=== PATIENT | female | born 1980 ===

== ENCOUNTER 2023-04-19 01:58 | Emergency (ER) | payer OTHER ==
[2023-04-19 02:34] LABS: Specific Gravity 1.022 (1.005-1.030)
[2023-04-19 02:37] LABS: Specific Gravity 1.022 (1.005-1.030); Urine Bacteria None Seen /HPF (<20); Urine Bilirubin NEGATIVE (Negative); Urine Blood Negative (Negative); Urine Clarity Clear (Clear); Urine Color Colorless (Yellow); Urine Glucose 4+ (Over) (Negative); Urine Protein NEGATIVE (Negative); Urine RBC <5 /HPF (None Seen); Urine Urobilinogen Normal (Normal)
[2023-04-19] MEDS ORDERED: DIAZEPAM 5 MG TABLET ONE (03:01)
[2023-04-19] MEDS ORDERED: HYDROCODONE/APAP 5/325 MG TAB ONE (03:02)
--- NOTE | 2023-04-19 03:14 | EDPHYS ---
Physician Documentation [facility] Name: Jo Rangel Age: 42 yrs Sex: Female : 1980 Arrival Date: 04/19/2023 Time: 01:58 Bed 13 Private MD: ED Physician Brandan Alcaraz HPI: 04/19 02:44 This 42 yrs old Female presents to ER via Ambulatory with complaints of Low Back Pain. ms3 02:44 42-year-old female with past medical history of bipolar disorder, diabetes, ms3 schizophrenia, depression, hypertension presents emergency department for kidney pain that is been ongoing for 4 days. Patient rates her discomfort an 8/10. Patient denies fevers, chills, nausea, vomiting. Patient states pain became worse today. Patient has been drinking water and taking ibuprofen without relief. 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 - Social history:: Smoking status: Patient denies any tobacco usage or history of. ROS: 02:44 Constitutional: Negative for fever, and chills. Cardiovascular: Negative for chest ms3 pain, and palpitations. Respiratory: Negative for shortness of breath, cough, wheezing, and pleuritic chest pain, Abdomen/GI: Negative for abdominal pain, nausea, vomiting, diarrhea, and constipation, 02:44 Back: Positive for back pain, 02:44 All other systems are negative, Exam: 02:44 Constitutional: This is a well developed, well nourished patient who is awake, alert, ms3 and in no acute distress. Head/Face: Normocephalic, atraumatic. Neck: Trachea midline, no cervical lymphadenopathy. Supple, full range of motion without nuchal rigidity, or vertebral point tenderness. No Meningismus. Chest/axilla: Normal chest wall appearance and motion. Nontender with no deformity. Cardiovascular: Regular rate and rhythm with a normal S1 and S2. No gallops, murmurs, or rubs. Normal PMI, no JVD. No pulse deficits. Respiratory: Lungs have equal breath sounds bilaterally, clear to auscultation and percussion. No rales, rhonchi or wheezes noted. No increased work of breathing, no retractions or nasal flaring. Abdomen/GI: Soft, non-tender, with normal bowel sounds. No distension or tympany. No guarding or rebound. No evidence of tenderness throughout. 02:44 Skin: Warm, dry with normal turgor. Normal color with no rashes, no lesions, and no evidence of cellulitis. 02:44 Back: CVA tenderness, is absent, Vital Signs: 02:08 Temp 97.9; Weight 90.72 kg; Pain 8/10; ap3 02:15 BP 123 / 73; Pulse 75; Resp 16 S; Pulse Ox 98% on R/A; km8 02:51 BP 110 / 65; Pulse 74; Resp 13; Pulse Ox 96% ; nw1 02:08 Pain Scale: Adult ap3 MDM: 02:26 Patient medically screened. ms3 02:44 Differential diagnosis: strain, UTI, Muscle spasm. ms3 03:14 Data reviewed: vital signs, nurses notes, lab test result(s), and as a result, I will ms3 discharge patient. I considered the following discharge prescriptions or medication management in the emergency department Medications were administered in the Emergency Department. See MAR. Counseling: I had a detailed discussion with the patient and/or guardian regarding the historical points, exam findings, and any diagnostic results supporting the discharge/admit diagnosis, lab results, the need for outpatient follow up, to return to the emergency department if symptoms worsen or persist or if there are any questions or concerns that arise at home. Response to treatment: the patient's symptoms have mildly improved after treatment, and as a result, I will discharge patient. Special discussion: I discussed with the patient/guardian in detail that at this point there is no indication for admission to the hospital. It is understood, however, that if the symptoms persist or worsen the patient needs to return immediately for re-evaluation. ED course: Discussed negative urinalysis with patient. Patient to follow-up with primary care physician in 2 to 3 days. Patient stands agrees with plan. All questions were answered. Return precautions discussed include worsening symptoms, or any other concerns. 04/19 02:04 Order name: Urinalysis w/ reflexes; Complete Time: 02:43 ms3 10/22 02:30 Order name: Test, Urine; Complete Time: km8 Administered Medications: 02:50 Drug: HYDROcodone-acetaminophen PO 5 mg-325 mg 1 tabs PO once; Wait for negative UPT km8 Route: PO; 02:50 Drug: Diazepam PO 5 mg PO once; after negative UPT Route: PO; km8 Disposition Summary: 04/19/23 03:14 Discharge Ordered Notes: Location: Home ms3 Condition: Stable ms3 Diagnosis - Low back pain ms3 Followup: ms3 - With: Everette Baeza DO - When: 2 - 3 days - Reason: Recheck today's complaints Discharge Instructions: - Discharge Summary Sheet ms3 - Acute Back Pain, Adult ms3 Forms: - Medication Reconciliation Form ms3 - Thank You Letter ms3 - Antibiotic Education ms3 - Prescription Opioid Use ms3 - Patient Portal Instructions ms3 - Leadership Thank You Letter ms3 Prescriptions: - Ibuprofen 600 mg Oral Tablet - take 1 tablet ORAL route every 6 hours As needed take with food; 30 tablet; ms3 Refills: 0, Product Selection Permitted - Cyclobenzaprine 10 mg Oral tablet - take 1 tablet ORAL route every 8 hours As needed; 20 tablet; Refills: 0, ms3 Product Selection Permitted Signatures: Dispatcher [employer] Wendy Bunch RN RN ap3 Brandan Alcaraz, DO ms3 Gayatri Ludwig RN RN km8
--- NOTE | 2023-04-19 03:14 | ER ---
Nurse's Notes [facility] Name: Jo Rangel Age: 42 yrs Sex: Female : 1980 Arrival Date: 04/19/2023 Time: 01:58 Bed 13 Private MD: Diagnosis: Low back pain Presentation: 04/19 02:08 Chief complaint: Patient states: she has been having kidney pain for 4 days, and is ap3 currently rating her pain as an 8/10. Patient denies nausea, vomiting or fevers/chills at this time. Coronavirus screen: At this time, the client does not indicate any symptoms associated with coronavirus-19. Ebola Screen: No symptoms or risks identified at this time. Risk Assessment: Do you want to hurt yourself or someone else? Patient reports no desire to harm self or others. Onset of symptoms was April 15, 2023. 02:08 Method Of Arrival: Ambulatory ap3 02:08 Acuity: DIMPLE 3 ap3 02:27 Initial Sepsis Screen: Does the patient meet any 2 criteria? No. Patient's initial km8 sepsis screen is negative. Does the patient have a suspected source of infection? No. Patient's initial sepsis screen is negative. Triage Assessment: 02:10 General: Appears in no apparent distress. Behavior is calm, cooperative, appropriate ap3 for age. Pain: Complains of pain in low back area Pain began gradually, 4 days ago. Neuro: Level of Consciousness is awake, alert, obeys commands, Oriented to person, place, time, situation, Appropriate for age. Cardiovascular: Patient's skin is warm and dry. Respiratory: Airway is patent Respiratory effort is even, unlabored, Respiratory pattern is regular, symmetrical. 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 - Social history:: Smoking status: Patient denies any tobacco usage or history of. Screenin:11 [facility] ED Fall Risk Assessment (Adult) History of falling in the last 3 months, ap3 including since admission No falls in past 3 months (0 pts). Abuse screen: Denies threats or abuse. Nutritional screening: No deficits noted. Tuberculosis screening: No symptoms or risk factors identified. Assessment: 02:15 General: Appears in no apparent distress. comfortable, Behavior is calm, cooperative. km8 02:15 Neuro: [place] Agitation-Sedation Scale (RASS): 0 - Alert and Calm Level of km8 Consciousness is awake, alert, obeys commands, Oriented to person, place, time, situation. Cardiovascular: No deficits noted. Denies chest pain, shortness of breath, Capillary refill < 3 seconds Patient's skin is warm and dry. Respiratory: No deficits noted. Airway is patent Respiratory effort is even, unlabored, Respiratory pattern is regular, symmetrical. GI: No deficits noted. No signs and/or symptoms were reported involving the gastrointestinal system. : Reports "kidney pain". EENT: No deficits noted. No signs and/or symptoms were reported regarding the EENT system. Derm: No deficits noted. No signs and/or symptoms reported regarding the dermatologic system. Skin is intact, is healthy with good turgor, Skin is dry, Skin is normal, Skin temperature is warm. Musculoskeletal: No deficits noted. No signs and/or symptoms reported regarding the musculoskeletal system. 02:15 Pain: Complains of pain in low back area Pain currently is 8 out of 10 on a pain scale. km8 02:52 Reassessment: Rounds and introductions made, Pt noted in bed on phone without s/s of nw1 acute distress noted. Pt verbalized understanding of questions. Pt tolerated PO medications without difficulty. Vital Signs: 02:08 Temp 97.9; Weight 90.72 kg; Pain 8/10; ap3 02:15 BP 123 / 73; Pulse 75; Resp 16 S; Pulse Ox 98% on R/A; km8 02:51 BP 110 / 65; Pulse 74; Resp 13; Pulse Ox 96% ; nw1 02:08 Pain Scale: Adult ap3 ED Course: 02:01 Patient arrived in ED. ag3 02:04 Brandan Alcaraz DO is Attending Physician. ms3 02:10 Triage completed. ap3 02:11 Arm band placed on right wrist. ap3 02:11 Patient has correct armband on for positive identification. Call light in reach. Side ap3 rails up X 1. 02:15 Oziel, Gayatri, RN is Primary Nurse. km8 02:15 Client placed on continuous cardiac and pulse oximetry monitoring. NIBP monitoring km8 applied. Door closed. Noise minimized. 02:15 Patient maintains SpO2 saturation greater than 95% on room air. km8 02:27 Urinalysis w/ reflexes Sent. km8 02:31 Test, Urine Sent. km8 03:01 Provided Education on: medication administration. nw1 03:01 No provider procedures requiring assistance completed. Patient did not have IV access nw1 during this emergency room visit. 03:13 Everette Baeza DO is Referral Physician. ms3 Administered Medications: 02:50 Drug: HYDROcodone-acetaminophen PO 5 mg-325 mg 1 tabs PO once; Wait for negative UPT km8 Route: PO; 02:50 Drug: Diazepam PO 5 mg PO once; after negative UPT Route: PO; km8 Medication: 03:01 VIS not applicable for this client. nw1 Outcome: 03:14 Discharge ordered by MD. ms3 03:21 Discharged to home ambulatory, nw1 03:21 Condition: stable 03:21 Discharge instructions given to patient, Instructed on discharge instructions, follow up and referral plans. medication usage, Demonstrated understanding of instructions, follow-up care, medications, 03:22 Patient left the ED. nw1 Signatures: Wendy Rich, RN RN [place]3 Maria T Oneill Brandan Lancaster DO DO ms3 Gayatri Ludwig, RN RN km8 Mary Jane Frias, RN RN nw1
== END 2023-04-19 03:22 | disposition home or self-care (01) ==
LOC: ER 01:58
DX: M54.50 Low back pain, unspecified (principal)
CPT/HCPCS: 81001; 81025; 99284